=== PATIENT | male | born 1985 | race Caucasian/White ===

== ENCOUNTER 2018-09-07 15:47 | Emergency (ER) | payer BC, OTHER ==
[~2018-09-07] VITALS: Ht 177.8 cm; Wt 104.3 kg
[2018-09-07 17:09] VITALS: BP 144/84
== END 2018-09-07 17:09 | disposition home or self-care (01) ==
LOC: M.ERS 15:47
DX: M65.4 Radial styloid tenosynovitis [de Quervain] (principal); F17.210 Nicotine dependence, cigarettes, uncomplicated